=== PATIENT | female | born 1950 | race Caucasian/White ===

== ENCOUNTER 2024-02-24 15:27 | Emergency (ER) | payer MEDICARE, SELFPAY ==
--- NOTE | ~2024-02-24 | XR_ITS ---
EXAMINATION: XR shoulder RT min 2V DATE: 02/24/2024 15:53 INDICATION: Right shoulder pain. Fall. TECHNIQUE: 5 views of right shoulder were obtained. COMPARISON: None. FINDINGS: Bone alignment is normal. No fracture. There is mild osteoarthritis of glenohumeral joint a nd severe osteoarthritis of acromioclavicular joint. IMPRESSION: 1. Polyarticular osteoarthritis. Reviewed, dictated and finalized at location E.
--- NOTE | ~2024-02-24 | XR_ITS ---
EXAMINATION: XR knee LT 3V DATE: 02/24/2024 15:53 INDICATION: Left knee pain. TECHNIQUE: 3 views of left knee were obtained. COMPARISON: None. FINDINGS: Bone alignment is normal. No fracture. There is moderate osteoarthritis of medial compartme nt and mild osteoarthritis of lateral and patellofemoral compartments. No knee joint effusion. IMPRESSION: 1. Moderate left knee osteoarthritis. Reviewed, dictated and finalized at location E.
--- NOTE | ~2024-02-24 | CT_ITS ---
EXAMINATION: CT brain wo con DATE: 02/24/2024 16:13 INDICATION: Head injury TECHNIQUE: Computed tomography (CT) of the head was performed without intravenous contrast. Sagittal and coronal reconstructions were performed. The mA was adjusted according to patient size. Iterative reconstruction technique was employed. The dose-length product was 605.33 mGy-cm. COMPARISON: None FINDINGS: No fracture. No acute intracranial hemorrhage, acute infarction or abnormal extra axial fluid collect ion. There is mild scattered white matter hypoattenuation consistent with chronic small vessel ischem ic disease. Ventricles are normal and symmetric. There are 3 small macroscopic fat attenuation lipoma is along the falx. No other mass/mass effect. Minimal bilateral mastoid effusions. The orbits and pa ranasal sinuses are normal. IMPRESSION: 1. No fracture or acute intracranial process. 2. Mild scattered white matter hypoattenuation consistent with chronic small vessel ischemic disease. Reviewed, dictated and finalized at location A. IMPRESSION: 1. No fracture or acute intracranial process. 2. Mild scattered white matter hypoattenuation consistent with chronic small ve ssel ischemic disease.
--- NOTE | ~2024-02-24 | CT_ITS ---
EXAMINATION: 1. CT facial & cervical spine wo DATE: 02/24/2024 16:13 INDICATION: Neck and facial injury TECHNIQUE: 1. Computed tomography (CT) of the maxillofacial region and of the cervical spine were performed with out intravenous contrast. Sagittal and coronal reconstructions of both regions were obtained. Automat ed exposure control and iterative reconstruction technique were employed. The dose-length product was 510.90 mGy-cm. COMPARISON: None. FINDINGS: Maxillofacial CT: No maxillofacial fractures. Specifically the nasal bones, zygomatic arches, mandible and heart of the orbits and paranasal sinuses are all intact. Orbits are normal. Mild mucosal thickening at the floor of the left maxillary sinus. Remainder of the paranasal sinuses are clear. Tiny bilateral mastoid ef fusions. Middle ear cavities are clear. Facial soft tissues are unremarkable. Cervical spine CT: Non focal reversal of the normal cervical lordosis. Mild upper thoracic levocurvature and minimal cer vical dextrocurvature. Vertebral body heights are normal. No fracture. Multilevel severe disc height loss from C3-C4 through C6-C7 and at T2-T3, moderate disc height loss at C7-T1, T1-T2 and T3-T4 and m ild disc height loss at C2-C3. Severe multilevel cervical uncovertebral osteoarthritis. Posterior dis c osteophyte complexes resulting in mild central canal stenosis from C3-C4 through C6-C7 . There is a lso mild to moderate multilevel cervical facet osteoarthritis. This contributes to multilevel bilater al neural foraminal stenosis, moderate severity bilaterally at C3-C4 and C4-C5 and mild at several ad ditional more caudal cervical levels. Cervical soft tissues are unremarkable. Visualized apices of shayna ngs are clear. IMPRESSION: 1. No acute maxillofacial fractures. 2. Severe lumbar and upper thoracic spondylosis with no acute osseous abnormality. Reviewed, dictated and finalized at location A. IMPRESSION: 1. No acute maxillofacial fractures. 2. Severe lumbar and upper thoracic spondylosis with no acute osseous abnormali ty.
[2024-02-24 15:26] VITALS: BP 161/93; PULSE 96; RESP 20; TEMP 36.9; O2SAT 99
--- NOTE | 2024-02-24 15:35 | ED.FALL ---
HPI - Fall General Chief Complaint: Fall Stated Complaint: FALL History of Present Illness HPI Narrative: 73-year-old female present to the emergency department for evaluation after having a ground level fall and facial injury. Patient reports she fell getting out of the car and struck her face. Resulting in a laceration to her forehead Related Data Allergies Allergy/AdvReac Type Severity Reaction Status Date / Time Penicillins Allergy Hives Verified 02/24/24 16:12 codeine AdvReac Hives Verified 02/24/24 16:12 Review of Systems Review of Systems: All systems reviewed & are unremarkable except as noted in HPI and below Exam Narrative: APPEARANCE: Well appearing, no pain, no distress, well-nourished. HEAD: normocephalic, atraumatic. EYES: PERRLA/EOMI, conjunctivae clear. NOSE: Normal no drainage EARS:TMS clear with good light reflex. THROAT: Pharynx clear, no exudate. NECK: Supple. No adenopathy, no masses. RESPIRATORY: Airway patent, respirations nonlabored. Clear to auscultation bilaterally, no rales, rhonchi, wheezing. CARDIOVASCULAR: Regular rate and rhythm without murmurs rubs or gallops. ABDOMINAL: Soft, nontender, nondistended, normal bowel sounds MUSCULOSKELETAL: Moves all extremities. Strength/ROM intact, No edema, No calf tenderness. NEURO: Alert. Cranial nerves II through XII intact. Good gait. Good coordination SKIN: Irregular V shaped laceration on forehead. Left lateral aspects of the laceration were superficial and needed no suture repair of the right side of the laceration was more deep and did require suture repair as detailed in the procedure note. Course Course Emergency Course: Laceration was repaired as described above and patient was encouraged to have close follow-up with her primary care physician and with Plastic surgery as requested. Vital Signs Vital signs: Vital Signs Temperature 98.4 F 02/24/24 15:26 Pulse Rate 96 02/24/24 15:26 Respiratory Rate 20 02/24/24 15:26 Blood Pressure 161/93 H 02/24/24 15:26 Pulse Oximetry 99 02/24/24 15:26 Oxygen Delivery Room Air 02/24/24 15:26 Temperature 98.4 F 02/24/24 15:26 Pulse Rate 96 02/24/24 16:56 Respiratory Rate 16 02/24/24 16:56 Blood Pressure 150/69 H 02/24/24 16:56 Pulse Oximetry 97 02/24/24 16:56 Oxygen Delivery Room Air 02/24/24 15:26 Procedures Laceration Laceration 1: Site: face Size (cm): 4 Description: linear and irregular Depth: simple, single layer Local Anesthetic: lidocaine 1% and with epi Amount of anesthesia used (mL): 3 Pre-repair: wound explored, irrigated and irrigated extensively ====== Skin Level ====== Skin layer closed with: nylon Size (cm): 6-0 Number of sutures: 9 Technique: simple, interrupted ====== Subcutaneous Layer ====== ====== Muscle Layer ====== ====== Tendon Layer ====== MDM - Fall MDM Narrative Medical decision making narrative: Patient had negative CT facial cervical and brain CTs patient had negative films of the x-ray and knee. Laceration was repaired as described above. Patient and family were updated on the results of the workup and plan for treatment and wound care. All questions concerns were addressed. Differential Diagnosis Differential diagnosis: Likely other (Subarachnoid fracture, subdural hematoma, facial fracture, shoulder injury, knee contusion, knee fracture) Imaging Data Radiologist's impression: Impressions Shoulder X-Ray 02/24/24 15:54 IMPRESSION: 1. Polyarticular osteoarthritis. Knee X-Ray 02/24/24 15:55 IMPRESSION: 1. Moderate left knee osteoarthritis. Head CT 02/24/24 16:15 IMPRESSION: 1. No fracture or acute intracranial process. 2. Mild scattered white matter hypoattenuation consistent with chronic small vessel ischemic disease. Head/Cervical Spine/Facial Bones CT 02/24/24 16:20 IMPRESSION: 1. No acute
[2024-02-24] MEDS: Please add drug allergy info to patient profile. 1 EACH XX (16:12)
[2024-02-24] MEDS: LIDO 1%/EPINEPHRINE 1:100,000 20 ML VIAL INFILTRATE (16:15)
[2024-02-24 16:56] VITALS: BP 150/69; PULSE 96; RESP 16; O2SAT 97
== END 2024-02-24 17:08 | disposition home or self-care (01) ==
PROVIDERS: Emergency Provider Emergency Medicine
DX: S01.81XA Laceration without foreign body of other part of head, initial encounter (principal); M19.90 Unspecified osteoarthritis, unspecified site; V48.4XXA Person boarding or alighting a car injured in noncollision transport accident, initial encounter
CPT/HCPCS: 31500; 70450; 70486; 72125; 73030; 73562; 99284

== ENCOUNTER 2025-05-15 15:15 | Emergency (ER) | payer MEDICARE, SELFPAY ==
--- OUTSIDE RECORDS SUMMARY | 2025-05-15 15:17 | XMS_ITS | Referral Summary ---
Author Organization [facility] Address [address] [place] [address] Care Team Providers Care Car Attendant Name Role Phone Jesika Echols MD Primary Care Provider + Encounters Date Type Department Care Team Description 04/25/[id number] [address] Jesika Echols MD 03/02/[id number] [address] Jesika Echols MD from Last 3 Months Allergies Active Allergy Reactions Criticality Noted Date Comments Adhesive Rash Medium 09/16/2024 Codeine Itching Reaction: ITCHING Penicillins Rash Reaction: RASH Medications RESTASIS MULTIDOSE 0.05 % drops INSTILL 1 DROP IN EACH EYE EVERY MORNING AND AT BEDTIME 1 8 Active oxyCODONE-aceta minophen (PERCOCET) 5-325 mg per tabletIndicatio ns:Pain TAKE 1/2 TABLET BY MOUTH EVERY 4 - 6 HOURS NEEDED FOR PAIN 0 8 Active folic acid (FOLVITE) 1 mg tablet Take 1 tablet (1 mg total) by mouth daily. 30 tablet 11 9 Active cholecalciferol (VITAMIN D-3) 5,000 unit capsule Take 5,000 Units by mouth daily Active levothyroxine (SYNTHROID) 150 mcg tablet Take 1 tablet (150 mcg total) by mouth election watcher before breakfast NO GENERIC Active potassium chloride ER 20 mEq CR tablet Take 1 tablet (20 mEq total) by mouth 2 (two) times a day Active gemfibroziL (LOPID) 600 mg tablet Take 1 tablet (600 mg total) by mouth 2 (two) times a day 4 Active omega 9-gjb-ypj-fish oil (Fish OiL) 100-160-1,000 mg capsule Take 5 mL by mouth daily 7 Active COQ10, LIPOSOMAL UBIQUINOL, ORAL Take 300 mg by mouth daily 1 Active melatonin tablet Take 4 tablets (4 mg total) by mouth nightly 2 Active progesterone (PROMETRIUM) 100 mg capsule Take 1 capsule (100 mg total) by mouth daily Active TIRZEPATIDE SUBQ Inject 2.5 mg under the skin once a week Compounded formula Active levothyroxine (SYNTHROID) 125 mcg tablet Take 1 tablet (125 mcg total) by mouth election watcher before breakfast 4 Active metoprolol XL (TOPROL-XL) 50 mg extended release tablet Take 1 tablet (50 mg total) by mouth daily 90 tablet 3 5 11/17/19 26 Active celecoxib (CeleBREX) 200 mg capsule Take 1 capsule (200 mg total) by mouth daily 90 capsule 3 5 12/20/19 26 Active buprenorphine (BUTRANS) 10 mcg/hour Place 1 patch on the skin once a week for 7 days 4 patch 5 Active Active Problems Problem Noted Date Diagnosed Date Chronic pain syndrome 08/08/2017 Somatic symptom disorder, pe rsistent, severe, with predominant pain 08/08/2017 Benign hypertension 07/11/2015 Elevated uric acid in blood 07/11/2015 Hyperlipidemia 07/11/2015 Hypothyroidism 07/11/2015 Carpal tunnel syndrome 06/01/2009 Social History Tobacco Use Types Packs/Day Years Used Date Smoking Tobacco: Never Alcohol Use Standard Drinks/Week Comments Never 0 (1 standard drink = 0.6 oz pur e alcohol) AUDIT-C Answer Date Recorded Frequency of Alcohol Consumption Never 06/30/2019 Average Number of Drinks Not on file 019 Frequency of Binge Drinking Not on file 06/11 Comments Unknown Sex and Gender Information Value Date Recorded Sex Assigned at Not on file Legal Sex Female 3:51 AM CARD CUTTER Gender Identity Not on file Sexual Orientation Not on file Last Filed Vital Signs Vital Sign Reading Time Taken Comments Blood Pressure 144/84 09/16/2024 1:05 PM CARD CUTTER Pulse 81 09/16/2024 1:05 PM CARD CUTTER Temperature 36.5 C (97.7 F) 11/13/2018 9:38 AM CARD CUTTER Respiratory Rate - - Oxygen Saturation - - Inhaled Oxygen Concentration - - Weight 92.2 kg (203 lb 3.2 oz) 09/16/2024 1:05 P M CARD CUTTER Height 152.4 cm (5') 09/16/2024 1:05 PM CARD CUTTER Body Mass Index 39.68 09/16/2024 1:05 PM CARD CUTTER Plan of Treatment Not on file Procedures Procedure Name Priority Date/Time Associated Diagnosis Comments HEPATITIS C ANTIBODY Routine 11/13/2018 12:48 PM CARD CUTTER Inflammatory arthritis from Last 3 Months or Most Recently Relevant to Health Maintenance Results * Hepatitis C antibody (11/13/2018 12:48 PM CARD CUTTER) Hep C Ab Nonreactive Nonreactive RADHA REDD Comment: Interpretive Data Positive results should be confirmed by a molecular method. If positive, a second separately collected sample should be submitted for Hepatitis C Virus (HCV) RNA Detection and Quantitation by Real-Time Reverse Class B Truck Driver-PCR (RT-PCR). Current interpretive data was last revised on 2016. Blood specimen (specimen) 11/13/2018 12:48 PM CARD CUTTER 11/13/2018 1:23 PM CARD CUTTER Narrative RADHA REDD - 11/13/2018 2:32 PM CARD CUTTER us Can Shakir Maldonado MD PhD LAB MICROBIOL OGY - GENERAL ORDERABLES Edited Result - Final RADHA REDD [facility] [place] [address] from Last 3 Months or Most Recently Relevant to Health Maintenance Insurance MEDICARE Where I've Been MEDICARE [facility] MEDICARE [employer] S[employer]IOR [employer] Care Teams Car Attendant Relationship Specialty Start Date End Date Jesika Echols MD PCP - General Internal Medicine 09/16/24
--- OUTSIDE RECORDS SUMMARY | 2025-05-15 15:17 | XMS_ITS | Patient Health Record ---
Author Organization [facility] Address [address] [address] [place] [address] Care Team Providers Care Associate Professor Of Education Name Role Phone Dayna BROWN, Kasi Primary Care Provider Un available Allergies Allergen (clinical drug ingredient) Drug/Non Drug Allergy documented on EMR Reaction Allergy Type Onset Date Status codeine Codeine Sulfate Unknown Drug Allergy A ctive Reason For Referral No Information Medications Medication SIG (Take, Route, Frequency, Duration) Notes Start Date End Date Status Synthroid Active oxyCODONE HCl Active OTC/Vitamins D3, B Complex, Potassium Active Triamterene-HCTZ Act margy Metoprolol Succinate Active Dicyclomine HCl 10 MG 1 tablet Orally Four times a day for 30 Active Social History Tobacco Use: Social History Observation Description Date Details (start date - stop date) Never Smoker NA - NA Tobacco Use/Smoking Question Answer Notes Are you a nonsmoker Problems Problem Type SNOMED Code ICD Code Onset Dates Problem Status W/U Status Risk Notes Problem 926789375 Change in bowel habits (R19.4) Active confirmed Problem 615477546 Colon, diverticulosis (K57.30) Active confirmed Problem 020350056 Abdominal cramping (R10.9) Active confirmed She develop ed low back pain and abdominal cramping one week ago. She was also having urinary symptoms consistent with a bladder infection. She contacted her PCP and was started on Keflex. Her bladder symptoms improved, but she continued to experience lower abdominal pain. She went to [facility] ER on Friday and had blood work and a CT, which was unremarkable. She has not had any blood or mucus in the stool. She has been having one to 2 bowel movements per day that are loose or lumpy. Her pain is worse in the right upper quadrant and radiates down her leg. Differential diagnosis include foods ulcerative colitis, neuromuscular pain, IBS, or others. Problem [id number] RLQ abdominal pain (R10.31) Active confirmed Problem 23141646 Ulcerative proctitis (K51.20) Active confirmed She has a history of ulcerative proctitis from over 10 years ago, which was previously treated with steroid suppositories. Plan Of Treatment Pending Test Test Name Order Date Colonoscopy 05/03/2019 LACTOFERRIN, QN, STOOL 05/03/2019 Insurance Providers Payer Name Payer Address Payer Phone Subscriber Number Group Number Insured Name Patient Relationship to Insured Coverage Start Date Coverage End Date [employer] [address] [place] [phone] [id number] Aristeo Alexander Spouse - patient is the spouse of the insured Medicare E2 [address] [address] [place] [address] [id number] Bebe Alexander Self - patient is the insured 7 Medical (General) History Medical History History ICD Code Hiatal hernia Hypothyroidism Hypertension Surgical History Surgery Date(Month/Year) Spinal stimulator implant 10/2017 Hysterectomy 2003 Back surgery x3
--- OUTSIDE RECORDS SUMMARY | 2025-05-15 15:17 | XMS_ITS | Data Portability ---
Author Organization [facility] [employer], [facility] Address [address] [address] Assessment Encounter Date Assessment Date Assessment LastModified by Organization Details LastModified Time 06/10/2023 06/10/2023 72 y/o M/F here for a group medical visit focusing on optimizing BMAC procedure for bilateral knees. Preprocedural screening labs were reviewed and discussed with patient, and post-procedure plan was discussed in detail. Given history of RA, feel patient would benefit from attending health optimization program for possible ozone/UBI treatment. She was given information regarding same. All questions answered. May follow up if she wishes to pursue health optimization. Return to clinic sooner for worsening symptoms. Greater than 20 minutes was spent with the patient in direct evaluation and subsequent care planning. Note: billing done solely on interaction of patient with OSMANY [email or web address] Not available 07/04/2023 12:07:40 Plan of Treatment Reminders Order Date Submit Date Provider Last Modified By Organization Details Last Modified Time Details Appointments None record ed. Lab None record ed. Referral None record ed. Procedures None record ed. Surgeries None record ed. Imaging XR, knee - rm 10 023 04/23/20 23 [email or web address] Not available 3 09:07:22 Medication Orders None record ed. Patient TargetsNo targets recorded. Patient InstructionsNo instructions recorded. Reason for Referral None Reported. Results Created Date Observation Date Name Description Value Unit Range Abnormal Flag Note LastModifiedBy Organization Detail LastModifiedTime 06/30/20 24 04/27/2024 US, jonole x, venou s, lower extre mity No observ ation record ed. BARCODE Not Available 08/21/ 2024 14:59:54 Result Notes None recorded. Problems No Known Problems Procedures Surgical History Date Name Laterality Status Provider Name and Address Organization Details Recorded Time 6 Back Surgery completed Kervin Dean [facility] 07/01/2022 12:12:28 6 Back Surgery completed Kervin Dean [facility] 07/01/2022 12:12:13 5 Back Surgery completed Kervin Dean [facility] 07/01/2022 12:11:58 Imaging Results None recorded. Procedure Notes None recorded. Medical Equipment None Reported. Allergies Allergen ID Allergen Name Allergen Category Reaction Reaction Severity Criticality Documentation Date Start Date Code Code System Note Provider Name and Address Organization Details Recorded Time 44092 codeine medicatio n itching Not available Not available 07/01/2022 2670 RxNorm Kervin Dean [facility] 12:09:26 98204 Product containin g penicilli n (product) medicatio n rash Not available Not available 07/01/2022 77228 8001 SNOMED Kervindouglas Dean [facility] 12:09:37 Medications Name Sig Start Date Stop Date Status Note LastModified by Organization Details LastModified Time semaglutide 2mg - bpc-157 1.25mg - b6 40mg/ml injectable - 2ml vial INJECT 0.12ML (12 UNITS) SUBCUTANE OUSLY ONCE A WEEK FOR WEEKS 1-4. INJECT 0.25ML (25 UNITS) ONCE A WEEK FOR WEEKS 5-8 08/19 completed Not Available Not Available Not Available semaglutide 1.25mg - bpc-157 1.25mg - b6 40mg/ml injectable - 5ml vial INJECT 0.8ML (80 UNITS) SUBCUTANE OUSLY ONCE A WEEK active Not Available Not Available No t Available semaglutide 2mg - bpc-157 1.25mg - b6 40mg/ml injectable - 5ml vial INJECT 1ML (100 UNITS) SUBCUTANE OUSLY ONCE A WEEK active Not Available Not Available No t Available celecoxib 200 mg capsule Take 1 capsule every day by oral route with meal(s). active Not Available Not Available No t Available cyclobenzap rine 10 mg tablet TAKE 1 TABS BY MOUTH AT BEDTIME (BEFORE BED) NEEDED active Not Available Not Available No t Available azithromyci n 250 mg tablet active Not Available Not Available Not Available metoprolol succinate ER 50 mg tablet,exte nded release 24 hr active Not Available Not Available Not Available ampicillin 500 mg capsule Take 4 caps (2000mg) PO 1 hour prior to out-patie nt procedure . active Not Available Not Available No t Available Synthroid 150 mcg tablet active Not Available Not Available Not Available potassium chloride ER 10 mEq tablet,exte nded release active Not Available Not Available Not Available oxycodone-a cetaminophe n 5 mg-325 mg tablet TAKE 1/2 TABLET BY MOUTH EVERY 4 TO 6 HOURS NEEDED active Not Available Not Available No t Available potassium chloride ER 20 mEq tablet,exte nded release(par t/cryst) active Not Available Not Available Not Available methotrexat e sodium 2.5 mg tablet active Not Available Not Available Not Available gemfibrozil 600 mg tablet active Not Available Not Available Not Available cephalexin 500 mg capsule Take 4 capsules (total of 2g) po one hour prior to procedure . One time dose. active Not Available Not Available No t Available hydrochloro thiazide 25 mg tablet active Not Available Not Available No t Available metoprolol succinate ER 25 mg tablet,exte nded release 24 hr active Not Available Not Available Not Available hydroxychlo roquine 200 mg tablet active Not Available Not Available No t Available methylpredn isolone 4 mg tablets in a dose pack active Not Available Not Available Not Available cefdinir 300 mg capsule active Not Available Not Available Not Available finasteride 5 mg tablet TAKE 1 TABLET BY MOUTH EVERY DAY active Not Available Not Available No t Available Restasis 0.05 % eye drops in a dropperette APPLY 1 DROP OPHT TWICE A DAY active Not Available Not Available No t Available fenofibrate nanocrystal lized 48 mg tablet active Not Available Not Available Not Available buprenorphi ne 10 mcg/hour weekly transdermal patch PLACE 1 PATCH ON THE SKIN ONCE A WEEK FOR 7 DAYS active Not Available Not Available No t Available Vascepa 1 gram capsule active Not Available Not Available Not Available Xiidra 5 % eye drops in a dropperette INSTILL 1 DROP IN BOTH EYES TWICE DAILY active Not Available Not Available No t Available Vitals Date Recorded Body height Body mass index (BMI) Body weight Heart rate Systolic And Diastolic Provider Name and Address Organization Details Last Updated DateTime 04/23/2023 154.94 cm 37.8 kg/m2 22067.47 g 74 /min 172/88 mm[Hg] Beverley Jose Ramon [facility] [employer] 04/23/2023 14:03:12 Date Recorded Body height Body mass index (BMI) Body weight Heart rate Systolic And Diastolic Provider Name and Address Organization Details Last Updated DateTime 06/10/2023 154.94 cm 37.8 kg/m2 79139.47 g 70 /min 170/84 mm[Hg] Shalini Douglas [facility] [employer] 15:14:21 Date Recorded Body height Heart rate Systolic And Diastolic Provider Name and Address Organization Details Last Updated DateTime 06/29/2024 154.94 cm 69 /min 145/79 mm[Hg] Oralia Neely [employer] 06/29/2024 11:34:34 Date Recorded Body height Body mass index (BMI) Body weight Heart rate Systolic And Diastolic Provider Name and Address Organization Details Last Updated DateTime 08/19/2023 154.94 cm 38.7 kg/m2 46474.44 g 74 /min 157/83 mm[Hg] Kervin Jermaine [facility] [employer] [facility] 08/19/2023 11:38:44 Date Recorded Body height Heart rate Systolic And Diastolic Provider Name and Address Organization Details Last Updated DateTime 08/25/2024 154.94 cm 69 /min 145/79 mm[Hg] Oralia Neely [facility] [employer] [facility] 08/25/2024 11:50:47 Social History Question Answer Notes LastModified by Organizat ion Details LastModified Time Tobacco Smoking Status Never Smoker Kervin Jermaine [facility] [employer] [facility] 07/01/2022 12:11:18 What Is Your Relationship Status? Information not available 07/01/2022 Sex: Unknown Functional Status Question Answer Note LastModified by Organization D etails LastModified Time What is your level of alcohol consumption? None Information not available 07/01/2022 Are you currently employed? No Information not available 07/01/2022 Mental Status None recorded. Family History Relationship Description Onset Age of this Age Resolved Age Notes LastModified by Organization Details LastModified Time Mother Arthritis Not available 07/01/2022 12:10:21 Mother Asthma Not available 12:10:35 Mother Diabetes mellitus Not available 2021 12:10:49 Mother Depressive disorder Not available 2021 12:11:01 Father Heart disease Not available 2021 12:10:28 Father Diabetes mellitus Not available 2021 12:10:49 Brother Diabetes mellitus Not available 2021 12:10:49 Brother Depressive disorder Not available 2021 12:11:01 Medical History Condition Response Other Cancer N HIV or AIDS N Coronary Artery Disease N Gout N Kidney Stones N Hyperthyroidism N Breast Cancer N Hernia N Head Trauma/Injury N Lung Cancer N Hypothyroidism N Lung Disease N Depression N Blood Clots N COPD N Pacemaker N Parkinson's N Anxiety Disorder N Arthritis Y Alcohol / Substance Abuse N Kidney Cancer N Cancer N Stroke N Melanoma N Neck Injury N Leg or Foot Ulcers N High Cholesterol N Skin Cancer N Liver Disease N Rheumatoid Arthritis N Headaches N Fibromyalgia N Concussion N Kidney Disease N Heart Problems N Scoliosis N Chronic use of Pain Medication N Prostate Cancer N Migraines N Thyroid Problems Y Alzheimers N Autoimmune Disorder N Anemia N Multiple Sclerosis N Tendon Tear N Ulcers N Heart Attack ([place]) N Osteopenia N Diabetes N Bleeding Disorder N Seizures/Epilepsy N Cardiac Stent N Tuberculosis N A-FIB N Lymphoma N Urinary Tract Infection N Back Problems N Diverticulitis N Asthma N Lupus N Peripheral Vascular Disease N Sleep Disorder N GERD/Reflux N Hepatitis N Aneurysm N Thyroid Cancer N Heart Disease N Pulmonary Embolism N Hypertension Y Osteoporosis N Gynecological HistoryNo gynecological history recorded. Obstetrics History GPAL:G 0 P 0 0 0 0 Past Encounters Encounter ID Performer Location Encounter Start Date Encounter Closed Date Diagnosis/Indication Diagnosis SNOMED-CT Code Diagnosis ICD10 Code Diagnosis Note [id number] Jose Alberto Vazquez MD [facility] [address] [facility] ,[address] [place] [address] 07/01/2022 11:41:23 07/01/2022 13:45:53 [id number] CHERIE DONG PA-C [facility] [address] [place] [address] 04/23/2023 13:37:24 04/24/2023 09:07:22 Pain of left knee joint 3939751737 58396 M25.562 [id number] DEVANTE HARDY PA-C [facility] [address] [place] [address] 06/10/2023 13:27:51 07/04/2023 12:38:14 Bilateral osteoarthritis of knees 9601221193 66267 M17.0 [id number] Jose Alberto Vazquez MD [facility] [address] [place] [address] 08/19/2023 11:24:15 08/19/2023 16:10:49 [id number] Jose Alberto Vazquez MD [facility] [address] [facility] [address] [place] [address] 06/29/2024 10:06:25 06/29/2024 12:52:58 [id number] Jose Alberto Vazquez MD [facility] [address] [facility] [address] [place] [address] 08/25/2024 11:28:27 08/25/2024 15:31:56 Health Concerns Section Related Observation LastModified by Organization Detai ls LastModified Time None Recorded Concern Status LastModified by Organization Details LastModified Time None Recorded Advance Directives Directive None Recorded Payers Insurance Date Sequence Insurance Name Policy Number Policy Zarco Covered Member ID Zarco Member ID Guarantor Name 04/24/2025 1 [place] Bebe Obrien Benjamin [id number] Bebe Alexander 04/24/2025 2 [employer] (MEDICARE SUPPLEMENT) Bebe Benjamin [id number] Bebe eBnjamin Notes Date Note Type Note Provider Name and Address Organization Details Recorded Time 06/10/2023 text/html 72 y/o F present s for group medical visit focusing on treatment optimization for upcoming biologic treatment. Patient has an upcoming BMAC treatment scheduled for bilateral knees on 06/26/2023. She presents today for lab review and to discuss post-procedural recommendations. Today she reports continued pain in the L>R knee. She denies any new or worsening symptoms since her office visit on 04/23/2023. She otherwise denies acute complaints, including no fever or recent illness, CP, SOB. DEVANTE HARDY PA-C [address], [place], [address], [facility] [employer], [facility] 07/04/2023 12:11:27 OBGyn Episode No OBEpisode recorded.
--- OUTSIDE RECORDS SUMMARY | 2025-05-15 15:17 | XMS_ITS | Continuity of Care Document ---
Author Organization [facility] Address [address] [place] [address] Phone Care Team Providers Care Printing Press Operator Name Role Phone Bennett Duke MD Unavailable Unavailable Procedures Procedure Date Office/outpatient Visit, [facility] Advance Directives Directive Yes / No Effective Date File Name No Information Encounters Encounter Description Practice Location Reason(s) For Visit Diagnoses Date Provider Providers Copied on Encounter Office/outpat ient Visit, [facility], [address], [place], [place], [id number], [place] tel:[phone] [facility] No Information [address] [facility] [facility] [address] [place], [place], [address], [place]. tel:[phone] Family History Family Member Type Diagnosis Age At Onset No Information Payers Payer name Insurance type Covered constitution party ID Authoriza tion(s) No Information Social History Type Description Quantity Date Captured Comments Sex Female Smoking Status No Information Chief Complaint And Reason For Visit No Information Reason For Referral Reason For Referral No Information History Of Present Illness Encounter Date Complaint History Of Prese nt Illness No Information Functional Status Date Functional Assessmen t No Information Instructions Date Instruction Additional Infor mation No Information Assessments Type Assessment Date No Information Patient Care Teams Name Effective Dates (start - stop) Status Members No Information
--- OUTSIDE RECORDS SUMMARY | 2025-05-15 15:17 | XMS_ITS | Encounter Summary ---
Author Organization [employer] Address 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
--- OUTSIDE RECORDS SUMMARY | 2025-05-15 15:17 | XMS_ITS | Encounter Summary ---
Author Organization [employer] Address [address] [place] [address] Care Team Providers Care Biomass Technician Name Role Phone Sofía Giron MD Primary Care Provider Encounter Details Date Type Department Care Team (Late st Contact Info) Description 02/17/2001 Outpatient Historical HIS [facility] Tio Tracey MD [address] [facility] [address] [place] [id number] Social History Tobacco Use Types Packs/Day Years Used Date Smoking Tobacco: Never Assessed Comments Unknown Sex and Gender Information Value Date Recorded Sex Assigned at Not on file Legal Sex Female 3:59 AM TEARER Gender Identity Not on file Sexual Orientation Not on file documented as of this encounter Plan of Treatment Not on file documented as of this encounter Visit Diagnoses Not on filedocumented in this encounter Care Teams Biomass Technician Relationship Specialty Start Date End Date Sofía Giron MD [address] [facility] [address] [place] [address] PCP - General Family Practice 07/11/15 06/10/17 documented as of this encounter
--- OUTSIDE RECORDS SUMMARY | 2025-05-15 15:17 | XMS_ITS | Encounter Summary ---
Author Organization [employer] [facility] Address [address] [place] [address] Care Team Providers Care Map Mounter Name Role Phone Unavailable Primary Care Provider Unavailabl e Encounter Details Date Type Department Care Team (Late st Contact Info) Description 10/15/2017 Lab Requisition 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 Gender Identity Not on file Sexual Orientation Not on file documented as of this encounter Plan of Treatment Not on file documented as of this encounter Procedures Procedure Name Priority Date/Time Associated Diagnosis Comments NEEDLESTICK EXPOSURE PANEL Routine 10/15/2017 3:30 PM MEDICAL OFFICE WORKER Contact with and (suspected) exposure to potentially hazardous body fluids (CODE) HEPATITIS B SURFACE ANTIGEN Routine 10/15/2017 3:30 PM MEDICAL OFFICE WORKER Contact with and (suspected) exposure to potentially hazardous body fluids (CODE) HEPATITIS C ANTIBODY Routine 10/15/2017 3:30 PM MEDICAL OFFICE WORKER Contact with and (suspected) exposure to potentially hazardous body fluids (CODE) documented in this encounter Results * HEPATITIS C ANTIBODY (10/15/2017 3:30 PM MEDICAL OFFICE WORKER) [facility] HEPATITIS C AB NON-REACTI VE Non-react margy 10/15/2017 5:17 PM MEDICAL OFFICE WORKER [facility] Comment: If a patient is known to be at high risk for HCV infection, or is symptomatic, and the physician's suspicion of HCV infection is high, HCV RNA testing is often employed and is of diagnostic value, even after an initial negative anti-HCV test result. Signal to cutoff index is <1.00. Blood Collection / Unknown 10/15/2017 3:30 PM MEDICAL OFFICE WORKER 10/15/2017 4:33 PM MEDICAL OFFICE WORKER Bebe Gonsalez MD CHEMISTRY ORDERABLES Montse l Result Performing Organization Address [facility]/ZIP Co de Phone Number [facility] CLIA# [id number] [address] [place] [address] * HEPATITIS B SURFACE ANTIGEN (10/15/2017 3:30 PM MEDICAL OFFICE WORKER) [facility] HEPATITIS B SURFACE AG NON-REACTI VE Non-reacti ve 10/15/2017 5:17 PM MEDICAL OFFICE WORKER [facility] Blood Collection / Unknown 10/15/2017 3:30 PM MEDICAL OFFICE WORKER 10/15/2017 4:33 PM MEDICAL OFFICE WORKER Bebe Gonsalez MD CHEMISTRY ORDERABLES Montse l Result [facility] CLIA# [id number] [address] [place] [address] * NEEDLESTICK EXPOSURE PANEL (10/15/2017 3:30 PM MEDICAL OFFICE WORKER) [facility] RAPID HIV SCREEN NON-REACTI VE Non-Reacti ve 10/15/2017 5:03 PM MEDICAL OFFICE WORKER [facility] Blood Collection / Unknown 10/15/2017 3:30 PM MEDICAL OFFICE WORKER 10/15/2017 4:33 PM MEDICAL OFFICE WORKER Bebe Gonsalez MD CHEMISTRY ORDERABLES COM Final Result Performing Organization Address [facility] Co de Phone Number [facility]# [id number] [address] [place] [address] documented in this encounter Visit Diagnoses Diagnosis Contact with and (suspected) exposure to potentially hazardous body fluids (CODE) documented in this encounter
--- OUTSIDE RECORDS SUMMARY | 2025-05-15 15:17 | XMS_ITS | Clinical Summary ---
Author Organization [address] Address [address] [place] [address] Care Team Providers Care Airborne Sensor Specialist Name Role Phone Unavailable Primary Care Provider Unavailabl e Allergies Active Allergy Reactions Criticality Noted Date Comments Codeine Unknown 07/11/2015 Penicillins Unknown 07/11/2015 Medications SYNTHROID 50 mcg tabletIndications:U nspecified hypothyroidism Take 50 mcg by mouth daily . 5 Active CRESTOR 10 mg tabletIndications:H yperlipidemia Take 10 mg by mouth daily . 5 Active aspirin (ECOTRIN EC) 81 mg Tablet, Delayed Release (E.C.) Take 81 mg by mouth daily. Active cholecalciferol, Vitamin D3, 5,000 unit Capsule Take 5,000 Units by mouth daily. Active multivitamin (DAILY-DILIA) tablet Take 1 Tablet by mouth daily. Active estradiol 0.1 mg/24 hr patch Apply 1 Patch to skin as directed twice weekly. Active allopurinol (ZYLOPRIM) 100 mg tabletIndications:E levated uric acid in blood Take 2 Tablet (200 mg) by mouth daily. 60 Tablet 3 5 Active buPROPion HCl (WELLBUTRIN XL) 150 mg Extended Release 24 hour tabletIndications:M ood disorder Take 1 Tablet (150 mg) by mouth daily broacher. 90 Tablet 3 5 Active ALPRAZolam (XANAX) 0.25 mg tablet Take 1 Tablet (0.25 mg) by mouth nightly as needed for Anxiety. 30 Tablet 3 5 Active losartan (COZAAR) 50 mg tablet Take 1 Tablet (50 mg) by mouth daily. 30 Tablet 0 5 Active Active Problems Problem Noted Date Diagnosed Date Morbid obesity with BMI of 40.0-44.9, adult 11/2014 Unspecified hypothyroidism 07/11/2015 Hyperlipidemia 07/11/2015 Benign hypertension 07/11/2015 Elevated uric acid in blood 07/11/2015 Encounters Date Type Department Care Team Description 05/03/2025 External Device Data [facility] ABSTRACTION Provider, Abstract 04/27/2025 External Device Data [facility] ABSTRACTION Provider, Abstract 04/26/2025 External Device Data [facility] ABSTRACTION Provider, Abstract 03/30/2025 External Device Data [facility] ABSTRACTION Provider, Abstract 03/29/2025 External Device Data [facility] ABSTRACTION Provider, Abstract from Last 3 Months Family History Medical History Relation Name Comments Diabetes Brother Stroke Brother Diabetes Father Heart Disease Father Alzheimer's Disease Mother Diabetes Mother Thyroid Disease Mother Relation Name Status Comments Brother Father Mother Social History Tobacco Use Types Packs/Day Years Used Date Smoking Tobacco: Never Smokeless Tobacco: Never Alcohol Use Standard Drinks/Week Comments No 0 (1 standard drink = 0.6 oz pur e alcohol) Comments No Sex and Gender Information Value Date Recorded Sex Assigned at Not on file Legal Sex Female 3:59 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 Gender Identity Not on file Sexual Orientation Not on file Last Filed Vital Signs Vital Sign Reading Time Taken Comments Blood Pressure 120/74 07/11/2015 2:11 PM CDT Pulse 98 07/11/2015 2:11 PM CDT Temperature 36.6 C (97.9 F) 07/11/2015 2:11 PM CDT Respiratory Rate - - Oxygen Saturation 97% 07/11/2015 2:11 PM CDT Inhaled Oxygen Concentration - - Weight 90.3 kg (199 lb) 07/11/2015 2:11 PM CDT Height 149.9 cm (4' 11) 07/11/2015 2:11 PM CDT Body Mass Index 40.19 07/11/2015 2:11 PM CDT Plan of Treatment Health Maintenance Due Date Last Done Comments DTAP/TDAP/TD VACCINES (1 - Tdap) 1971 PNEUMOCOCCAL VACCINE 50+ YEARS (1 of 2 - PCV) 10/05/19 71 ZOSTER VACCINE (1 of 2) 1971 COLORECTAL SCREENING 1997 Colorectal Cancer Screening 1997 FIT-DNA Q 3 years 1997 FIT/FOBT Q 1 year 1997 Flex Sig/CT Colonography Q 5 years 1997 RSV VACCINE (60+ or ) (1 - Risk 60-74 years 1-dose series) 2012 BREAST CANCER SCREENING 04/15/2016 04/15/2015 OSTEOPOROSIS SCREENING 2017 INFLUENZA VACCINE (#1) 2025 [place] [address] MEDICARE PART A AND B AETNA MEDICARE SUPP AESSI
--- OUTSIDE RECORDS SUMMARY | 2025-05-15 15:17 | XMS_ITS | Clinical Summary ---
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 Social History Tobacco Use Types Packs/Day Years Used Date Smoking Tobacco: Never Assessed Comments Unknown Sex and Gender Information Value Date Recorded Sex Assigned at Not on file Legal Sex Female 4:53 PM CDT Gender Identity Not on file Sexual Orientation Not on file Plan of Treatment Health Maintenance Due Date Last Done Comments DEXA Bone Density 1950 Hepatitis C Virus (HCV) Screening 1950 TdaP Immunization 1950 Colonoscopy 1997 Colorectal Cancer Screening 1997 Cologuard 2002 Immunochemical Fecal Occult Blood 2002 Mammogram 2002 Pneumococcal Immunization (5 0+ years) (1 of 1 - PCV) 2002 Zoster Immunization (1 of 2) 2002 Influenza Immunization (#1) 2024 SARS-COV-2 Immunization ( - 2023- season) 2024 Respiratory Syncytial Virus (RSV) Immunization (Adult) (1 - 1-dose 75+ series) 2027 Hepatitis B Immunization Aged Out No longer eligible based on patient's age to complete this topic Meningococcal Immunization (ACWY) Aged Out No longer eligible based on patient's age to complete this topic Rotavirus Immunization Aged Out No lo nger eligible based on patient's age to complete this topic Insurance [employer] Care Teams Electric Razor Assembler Relationship Specialty Start Date End Date Provider, Not On File [place] PCP - General 07/25/17
--- OUTSIDE RECORDS SUMMARY | 2025-05-15 15:17 | XMS_ITS | Clinical Summary ---
Author Organization [facility] Address [address] [place] [address] Care Team Providers Care Long Distance Billing Operator Name Role Phone Jesika Echols MD Primary Care Provider + Allergies Active Allergy Reactions Criticality Noted Date [...] 1 tablet (150 mcg total) by mouth tubing machine tender before breakfast NO GENERIC Active potassium chloride ER 20 mEq CR tablet Take 1 tablet (20 mEq total) by mouth 2 (two) times a day Active gemfibroziL (LOPID) 600 mg tablet Take 1 tablet (600 mg total) by mouth 2 (two) times a day 4 Active omega 7-tmw-isn-fish oil (Fish OiL) 100-160-1,000 mg capsule Take [...] 1 tablet (125 mcg total) by mouth tubing machine tender before breakfast 4 Active metoprolol XL (TOPROL-XL) [...] 07/11/2015 Hypothyroidism 07/11/2015 Carpal tunnel syndrome 06/01/2009 Encounters Date Type Department Care Team Description 04/25/2025 [facility]ation [facility] [place] [id number] [id number] Jesika Echols MD 03/02/2025 Telephone [facility] [address] [address] Jesika Echols MD from Last 3 Months Surgical History Surgery Date Site/Laterality Comments BACK SURGERY 11/10/2014 - 11/09/2015 N/A L4,5,S1 BACK SURGERY 11/10/2015 - 11/09/2016 N/A Revision surgery L4-S1 with discectomy SPINAL CORD STIMULATOR IMPLANT 11/10/2016 - 11/09/2017 battery pack lower lumbar area TOTAL ABDOMINAL HYSTERECTOMY 11/10/2002 - 11/09/2003 TONSILLECTOMY 11/10/1956 - 11/09/1957 ROTATOR CUFF REPAIR 11/10/2017 - 11/09/2018 Right Medical History Medical History Date Comments HTN (hypertension) Rheumatoid arthritis (HCC) chron ic pain L wrist, knees. + RF Thyroid disease Randhawa's cyst of knee, left Neuropathy of lower extremity se condary to back suregyer, wooden sensation in L4-5 dermatome, pins an dneedles. Residual sciatica Foot drop, right s/p back surger y Shoulder pain, right s/p rotator cuff injury and repair Family History Medical History Relation Name Comments Diabetes Father Heart disease Father Arthritis Mother Diabetes Mother Stroke Mother Relation Name Status Comments Father Mother Social History Tobacco Use Types [...] on file Legal Sex Female 3:51 AM RETAIL RECEIVING CLERK Gender Identity Not on file Sexual Orientation Not on file Obstetrics History Last Filed Vital Signs Vital Sign Reading Time Taken Comments Blood Pressure 144/84 09/16/2024 1:05 PM RETAIL RECEIVING CLERK Pulse 81 09/16/2024 1:05 PM RETAIL RECEIVING CLERK Temperature 36.5 C (97.7 F) 11/13/2018 9:38 AM RETAIL RECEIVING CLERK Respiratory Rate - - Oxygen Saturation - - Inhaled Oxygen Concentration - - Weight 92.2 kg (203 lb 3.2 oz) 09/16/2024 1:05 P M RETAIL RECEIVING CLERK Height 152.4 cm (5') 09/16/2024 1:05 PM RETAIL RECEIVING CLERK Body Mass Index 39.68 09/16/2024 1:05 PM RETAIL RECEIVING CLERK Plan of Treatment Health Maintenance Due Date Last Done Comments Breast Cancer Screening-Mammogram 1952 Colon Cancer Screening-Colonoscopy 1952 Depression Screening 1952 Fall Risk Assessment 1952 Osteoporosis Screening-Bone Density Scan 1952 Hepatitis B Screening 1970 Pneumococcal vaccine 65+ (1 of 1 - PCV) 2002 Zoster Vaccine (1 of 2) 2002 Well Visit 65+ 2017 DTaP/Tdap/Td Vaccine (2 - Tdap) 06/13/2025 5 Influenza Vaccine (Season Ended) 2025 Hepatitis C Screening Completed 11/13/2018 Procedures Procedure Name Priority Date/Time Associated Diagnosis Comments HEPATITIS C ANTIBODY Routine 11/13/2018 12:48 PM RETAIL RECEIVING CLERK Inflammatory arthritis from Last 3 Months or Most Recently Relevant to Health Maintenance Results * Hepatitis C antibody (11/13/2018 12:48 PM RETAIL RECEIVING CLERK) Hep C Ab Nonreactive Nonreactive [facility] Comment: Interpretive Data Positive results should be confirmed by a molecular method. If positive, a second separately collected sample should be submitted for Hepatitis C Virus (HCV) RNA Detection and Quantitation by Real-Time Reverse Member Service Specialist-PCR (RT-PCR). Current interpretive data was last revised on 2016. Blood specimen (specimen) 11/13/2018 12:48 PM RETAIL RECEIVING CLERK 11/13/2018 1:23 PM RETAIL RECEIVING CLERK Narrative [facility] - 11/13/2018 2:32 PM RETAIL RECEIVING CLERK us Can Shakir Maldonado MD PhD LAB MICROBIOL OGY - GENERAL ORDERABLES Edited Result - Final [facility] Department [place] [address] from Last 3 Months or Most Recently Relevant to Health Maintenance Insurance MEDICARE [employer] MEDICARE [facility] Address: [id number] [place] [address] [facility] MEDICARE AETNA SENIOR SUPPLEMENT Care Teams Long Distance Billing Operator Relationship Specialty Start Date End Date Jesika Echols MD PCP - General Internal Medicine 09/16/24
--- OUTSIDE RECORDS SUMMARY | 2025-05-15 15:17 | XMS_ITS | Encounter Summary ---
Author Organization [employer] Address [address] [place] [address] Care Team Providers Care Demo Event Specialist Name Role Phone Sofía Giron MD Primary Care Provider Encounter Details Date Type Department Care Team (Late st Contact Info) Description 03/19/2001 Outpatient Historical [facility] Tio Tracey MD [address] [facility] [address] [place] [id number] Social History Tobacco Use Types Packs/Day Years Used Date Smoking Tobacco: Never Assessed Comments Unknown Sex and Gender Information Value Date Recorded Sex Assigned at Not on file Legal Sex Female 3:59 AM CERTIFIED MEDICAL ASSISTANT Gender Identity Not on file Sexual Orientation Not on file documented as of this encounter Plan of Treatment Not on file documented as of this encounter Visit Diagnoses Not on filedocumented in this encounter Care Teams Demo Event Specialist Relationship Specialty Start Date End Date Sofía Giron MD [address] [facility] [address] [place] [address] PCP - General Family Practice 07/11/15 06/10/17 documented as of this encounter
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
--- OUTSIDE RECORDS SUMMARY | 2025-05-15 15:21 | XMS_ITS | Continuity of Care Document ---
Author Organization [facility] Address [address] [facility] [facility] [address] [place] [address] Phone Care Team Providers Care Merchandise Stocker Name Role Phone eBnnett Duke MD Unavailable Unavailable Procedures Procedure Date Office/outpatient Visit, [facility] Advance Directives Directive Yes / No Effective Date File Name No Information Encounters Encounter Description Practice Location Reason(s) For Visit Diagnoses Date Provider Providers Copied on Encounter Office/outpat ient Visit, [facility], [address], [place], [place], [id number], [place] tel:[phone] [facility] No Information [address] [facility] [place], [id number], [place]. tel:[phone] Family History Family Member Type Diagnosis Age At Onset No Information Payers Payer name Insurance type Covered libertarian ID Authoriza tion(s) No Information Social History [...]
[2025-05-15 15:25] VITALS: BP 148/70; PULSE 73; RESP 18; TEMP 36.5; O2SAT 99
== END 2025-05-15 15:33 | disposition home or self-care (01) ==
PROVIDERS: Emergency Provider Nurse Practitioner Family
DX: L30.9 Dermatitis, unspecified (principal); I10 Essential (primary) hypertension
CPT/HCPCS: 99213; G0463